=== PATIENT | female | born 1945 | race Caucasian/White ===

== ENCOUNTER 2018-12-15 12:45 | Outpatient (CLI) | payer MEDICARE | END 2018-12-15 23:59 | disposition home or self-care (01) | LOC: CFH 12:45 → EDSTATUS 13:00 → CFH 23:59 | PROVIDERS: ATTEND Internal Medicine Cardiovascular Disease | DX: I08.0 Rheumatic disorders of both mitral and aortic valves (principal) | CPT/HCPCS: 93306 ==